=== PATIENT | female | born 1955 | race Caucasian/White ===

== ENCOUNTER → 2023-09-14 06:27 | Day surgery (SDC) | payer MEDICARE, OTHER, SELFPAY | LOC: GI 06:27 | PROVIDERS: ATTENDING PHYSICIAN Internal Medicine | DX: C18.4 Malignant neoplasm of transverse colon (principal); K92.1 Melena; R19.4 Change in bowel habit; K57.30 Diverticulosis of large intestine without perforation or abscess without bleeding; D12.0 Benign neoplasm of cecum; D12.3 Benign neoplasm of transverse colon; D12.2 Benign neoplasm of ascending colon | CPT/HCPCS: 45385; 45380; 45381; 88305 ==

== ENCOUNTER 2023-10-01 09:33 | Outpatient (RCR) | payer MEDICARE, OTHER, SELFPAY ==
[2023-10-01 09:46] VITALS: BP 152/88
[2023-10-01 10:14] VITALS: BP 145/89
[2023-10-01 10:17] VITALS: BP 135/86
[2023-10-01 10:20] VITALS: BP 117/68
== END 2023-10-04 08:25 | disposition home or self-care (01) ==
LOC: OID 09:33
PROVIDERS: ATTENDING PHYSICIAN Internal Medicine Hematology & Oncology; FAMILY PHYSICIAN Family Medicine
DX: D75.1 Secondary polycythemia (principal)
CPT/HCPCS: 99195

== ENCOUNTER 2023-11-19 08:54 | Outpatient (RCR) | payer MEDICARE, OTHER, SELFPAY ==
[2023-11-19 10:06] VITALS: BP 139/72
[2023-11-19 10:36] VITALS: BP 149/78
[2023-11-19 10:43] VITALS: BP 134/71
[2023-11-19 10:47] VITALS: BP 111/58
== END 2023-11-22 09:05 | disposition home or self-care (01) ==
LOC: OID 08:54
PROVIDERS: ATTENDING PHYSICIAN Internal Medicine Hematology & Oncology
DX: D75.1 Secondary polycythemia (principal)
CPT/HCPCS: 99195

== ENCOUNTER 2023-12-03 06:10 | Inpatient (IN) | payer MEDICARE, OTHER, SELFPAY ==
[2023-11-19 08:18] VITALS: BMI 33.1
[2023-11-19 09:08] LABS: Hematocrit 45.4 % (37.0-47.0); Hemoglobin 15.4 g/dL (12.0-16.0); Mean Corp Hgb Conc. 33.9 g/dL (33.0-37.0); Mean Corpuscular Hgb 30.6 pg (27.0-31.0); Mean Corpuscular Volume 90.1 fL (81.0-99.0); Mean Platelet Volume 9.7 fL (7.4-10.4); Platelet Count 305 10^3/uL (130-400); Red Blood Cell Count 5.04 10^6/uL (4.20-5.40); Red Cell Dist. Width 12.9 % (11.5-14.5); White Blood Cell Count 8.8 10^3/uL (4.8-10.8)
[2023-11-19 09:10] LABS: ALT (SGPT) 34 U/L (0-35); AST (SGOT) 62 U/L (14-36); Albumin 4.8 g/dl (3.5-5.0); Alkaline Phosphatase 88 U/L (38-126); Blood Urea Nitrogen 14 mg/dl (7-17); Calcium 10.4 mg/dl (8.4-10.2); Carbon Dioxide 24 mmol/L (22-30); Chloride 101 mmol/L (98-107); Estimated Creatinine Clearance 55 ml/min; Glucose 114 mg/dl (70-99); INR 1.02; PT 13.2 Sec (11.4-14.6); Sodium 138 mmol/L (135-145); Total Protein 8.9 g/dl (6.3-8.2); eGFR > 60.00
[2023-11-19 09:11] LABS: APTT 35.2 Sec (23.4-35.0)
[2023-11-19 09:40] LABS: CEA 1.71 ng/ml
[2023-11-19 09:58] LABS: Glycohemoglobin (HgbA1c) 5.7 % (4.0-5.6)
--- NOTE | 2023-11-22 14:13 | PTCARENOTE ---
EKG OK per Dr Young.
[2023-12-03] VITALS (12 sets, daily range): BP systolic 105–141; BP diastolic 60–75; BMI 33.1
[2023-12-03] MEDS: ENTEREG 12 MG PO (07:16)
[2023-12-03] MEDS: NORMOSOL-R 1000 IV ×3 (07:17→23:24)
[2023-12-03] MEDS: HEPARIN 5000 UNITS SC (07:17)
[2023-12-03] MEDS: TYLENOL 1000 MG PO (07:17)
--- NOTE | 2023-12-03 12:08 | W.IMMPOSTOP ---
Surgical Immed Post Op Note
-
Primary Surgeon: David Rao MD
Securities [employer] Director: DASH Lackey & VALENTINA Casper
Pre-op Diagnosis: Dysplastic transverse colon polyp
Post-op Diagnosis: Same
Procedure Performed: Robotic extended right colectomy with intracorporeal anastomosis
Anesthesia Type: GET
Specimen / Cultures: Right colon and transverse colon (suture roque polypectomy site
Estimated Blood Loss: 25cc
Complications: None
Operative Findings: No evidence of metastatic disease
Carbon black ink in the mid to proximal transverse colon
Isoperistaltic intracorporeal anastomosis
Upon opening the specimen on the back table, the polypectomy site was just proximal to the ink (suture placed to jaylin the site)
Patient's and sisters updated.
[2023-12-03 12:25] LABS: Glucose - Point of Care 140 mg/dl (70-99)
--- NOTE | 2023-12-03 14:10 | PTCARENOTE ---
Patient admitted from [facility] post robotic right colectomy secondary to colon cancer.The patient denies any pain except when she moves.Vital signs are stable.All five incision sites are clean and dry without drainage.The patient is in her bed with the
call salazar in reach.her is at the bedside.
[2023-12-03] MEDS: TYLENOL 650 MG PO ×3 (15:43→23:24)
[2023-12-03] MEDS: TORADOL 10 MG IV ×2 (15:43→20:27)
[2023-12-04] MEDS: TORADOL 10 MG IV ×4 (01:20→19:19)
[2023-12-04] MEDS: TYLENOL 650 MG PO ×4 (03:45→16:20)
[2023-12-04 03:55] VITALS: BP 101/56
[2023-12-04] MEDS: SYNTHROID 150 MCG PO (05:37)
[2023-12-04 06:00] VITALS: BMI 33.4
[2023-12-04 06:26] LABS: % Basophils 0.1 % (0-2); % Immature Granulocytes 0.4 % (0-0.5); % Monocytes 6.6 % (1.7-9.3); % Neutrophils 87.9 % (42.2-75.2); Absolute Lymphocytes 0.6 10^3/uL (1.2-3.4); Absolute Monocytes 0.8 10^3/uL (0.1-0.6); Hemoglobin 10.9 g/dL (12.0-16.0); Mean Corpuscular Hgb 30.4 pg (27.0-31.0); Mean Corpuscular Volume 91.9 fL (81.0-99.0); Mean Platelet Volume 9.4 fL (7.4-10.4); Nucleated Red Blood Cells % 0 %; Platelet Count 248 10^3/uL (130-400); Red Blood Cell Count 3.59 10^6/uL (4.20-5.40); Red Cell Dist. Width 13.4 % (11.5-14.5); White Blood Cell Count 11.3 10^3/uL (4.8-10.8)
[2023-12-04 06:46] LABS: Blood Urea Nitrogen 14 mg/dl (7-17); Calcium 7.1 mg/dl (8.4-10.2); Carbon Dioxide 28 mmol/L (22-30); Chloride 99 mmol/L (98-107); Estimated Creatinine Clearance 61 ml/min; Glucose 127 mg/dl (70-99); Potassium 3.9 mmol/L (3.5-5.1); Sodium 133 mmol/L (135-145); eGFR > 60.00
[2023-12-04 07:15] VITALS: BP 117/72
[2023-12-04] MEDS: PROTONIX 40 MG PO (08:34)
[2023-12-04] MEDS: NORVASC 10 MG PO (08:34)
[2023-12-04] MEDS: ENTEREG 12 MG PO ×2 (08:35→19:19)
--- NOTE | 2023-12-04 10:22 | W.PN.CRS1 ---
Today's Communication / Plan
-
68-year-old female with PMH of hypothyroid, HTN, HLD, hemochromatosis (s/p 1 pint blood draw 1 to 2 weeks ago), DAVID syndrome, idiopathic hypercalcemia, who had an dysplastic transverse colon polyp, presented for elective surgery
POD 1 robotic extended RHC
AFVSS, UOP 1.8 L, Hb 10.9 (from 15.4)
� Advance to clear liquid diet
� Pain control with Tylenol, Toradol, Dilaudid as needed; continue Entereg
� Drop in hemoglobin, likely related to hemodilution and recent blood draw for hemochromatosis; repeat at noon, if stable, will start DVT PPx
� DC Green, monitor for void
� DC O2
� OOB/IS
Subjective Data
Subjective Data
Date of Service: December 04, 2023
No overnight events.
Pain controlled.
Denies nausea/vomiting. Tolerating diet.
+flatus -BMs +green
Pt is not OOB yet.
Objective Data
-
Vital Signs
Temp Pulse Resp BP Pulse Ox
98.2 F 86 17 117/72 96
12/04/23 07:15 12/04/23 07:15 12/04/23 07:15 12/04/23 07:15 12/04/23 07:15
Intake & Output
12/03/23 12/04/23 12/05/23
06:59 06:59 06:59
Intake Total 1720 / 1720
Output Total 1874
Balance -155 / -155
Intake:
Oral fluids 620 / 620
IV fluids (Total) 1100 / 1100
Normosol 200 / 200
Output:
Urine, Green 1874
Lab Results
12/04/23 06:14
Physical Exam
-
General: No Acute Distress and AOx3
HEENT: Grossly Normal
Abdomen: Soft, Non Distended, Tender (Appropriately tender), No Guarding and No Rebound
Skin: Warm and Dry
Wound: No Signs of Infection, Dressing in Place (With Dermabond) and No Skin Erythema
--- NOTE | 2023-12-04 10:58 | CM ---
met with patient and her at bedside.patient lives with in split level home with 7 steps to enter home.she sleeps on recliner in family room/first floor level.there is a bathroom on that level.she amb i and is I with her adl.
raad has poa.her pcp is dr qiu and she uses [facility] in [place].patient with a hx of hemachromatosis is sp robo right colectomy for a transverse colon polyp.she will ambulate,dc ivf,monitor hgb,is,advance to clears.patient for
possible dc home tomorrow .patient has declined a vn.Plan is home with no needs.patient signed imm letter.
[2023-12-04 11:15] VITALS: BP 112/65
[2023-12-04] MEDS: NORMOSOL-R 1000 IV (12:18)
[2023-12-04 12:36] LABS: Hemoglobin 10.6 g/dL (12.0-16.0)
[2023-12-04 15:34] VITALS: BP 118/69
[2023-12-04] MEDS: LOVENOX 40 MG SC (17:17)
[2023-12-04] MEDS: TYLENOL PO ×2 (19:25→23:05)
[2023-12-04 23:12] VITALS: BP 111/68
[2023-12-05] MEDS: TYLENOL 650 MG PO ×2 (00:21→07:48)
[2023-12-05 01:34] VITALS: BMI 34.1
[2023-12-05] MEDS: TORADOL 10 MG IV ×2 (01:37→07:46)
[2023-12-05] MEDS: TYLENOL PO (04:25)
[2023-12-05 04:55] VITALS: BMI 34.1
[2023-12-05 06:00] VITALS: BMI 34.1
[2023-12-05] MEDS: SYNTHROID 150 MCG PO (06:20)
[2023-12-05 07:10] VITALS: BP 128/72
[2023-12-05] MEDS: PROTONIX 40 MG PO (07:46)
[2023-12-05] MEDS: ENTEREG 12 MG PO (07:46)
[2023-12-05] MEDS: NORVASC 10 MG PO (07:48)
[2023-12-05] MEDS: LOW STRENGTH ASPIRIN 81 MG PO (07:51)
--- NOTE | 2023-12-05 09:35 | W.PN.CRS1 ---
Today's Communication / Plan
-
Okay for DC
Assessment/Plan
-
68-year-old female with PMH of hypothyroid, HTN, HLD, hemochromatosis (s/p 1 pint blood draw 1 to 2 weeks ago), DAVID syndrome, idiopathic hypercalcemia, who had an dysplastic transverse colon polyp, presented for elective surgery
POD 2 robotic extended RHC
AFVSS, Hb 10.6 (from 10.9)
� Continue low residue
� Pain control with Tylenol, Toradol, Dilaudid as needed; continue Entereg
� Hb stable, continue DVT PPx with Lvx
� Off O2 and voiding
� OOB/IS
Dispo�okay for discharge; follow-up with Dr. Rao in 2 to 4 weeks
Subjective Data
Subjective Data
Date of Service: December 05, 2023
No overnight events.
Pain controlled.
Denies nausea/vomiting. Tolerating low residue.
+flatus +BMs (nonbloody) +voiding
Pt is OOB.
Objective Data
-
Vital Signs
Temp Pulse Resp BP Pulse Ox
98.2 F 90 17 128/72 94
12/05/23 07:10 12/05/23 07:10 12/05/23 07:10 12/05/23 07:10 12/05/23 08:00
Intake & Output
12/04/23 12/05/23 12/06/23
06:59 06:59 06:59
Intake Total 1720 / 1720 2740 / 2740
Output Total 1874 700 / 700
Balance -155 / -155 2039
Intake:
Oral fluids 620 / 620 1839 / 184
IV fluids (Total) 1100 / 1100 900 / 900
Normosol 200 / 200
Output:
Urine, Syed 1874
Urine, Voided 700 / 700
Other:
Number of approximated MODERATE 3
amounts of urine
Number of approximated LARGE 1
amounts of urine
Lab Results
12/04/23 12:15
12/04/23 06:14
Physical Exam
-
General: No Acute Distress and AOx3
HEENT: Grossly Normal
Abdomen: Soft, Non Distended and Tender (Appropriately tender near incisions, no rebound or guarding)
Skin: Warm and Dry
Wound: No Signs of Infection and Dressing in Place (With Dermabond)
--- NOTE | 2023-12-05 10:56 | CM ---
Initial assessment completed with patient and who live in a split level home with B/B on lower and top floor, 7 steps to each level and 1 step into home. [employer] patient was independent and drove, no DME or in-home services. [facility] [place] and PCP is Dr. Amandeep Keller. Anticipate home with no needs. Patient is in agreement.
--- NOTE | 2023-12-05 11:01 | CM ---
Patient has been medically cleared for discharge to home with no additional skilled services. transported home. l
--- NOTE | 2023-12-05 11:19 | W.DCSUMMARY ---
Discharge Summary
Discharge Data
Date of Admission: 12/03/23
Date of Discharge: 12/05/23
-
Pending Results: No
Hospital Course
68 yo female who presented for scheduled management of dysplastic transverse colon polyp with robotic extended right colectomy with intracorporeal anastomosis. She tolerated the procedure well without acute complications. Diet was able to be
advanced and well tolerated post operatively. She was able to void without difficulty after removal of perioperative Syed. She was discharged to home with outpatient follow up planned in the coming weeks. Pathology from OR pending.
Discharge Plan
-
Patient Disposition: Home (Routine Discharge)
Discharge Diagnosis/Procedures: Robotic extended right colectomy with intracorporeal anastomosis
Condition: Good
Diet: Low Residue
Activity: No strenuous activity
Additional Activity: No lifting over 10lbs (gallon of milk)
Driving Restrictions: No driving for 1 week
Bathing Restrictions: OK to Shower
Wound Care: Allow glue to naturally fall off. Do not pick at incisions.
Instructions: Low Fiber Diet
Referrals:
Walt Rao MD [Active] - in two weeks
Amandeep Keller DO [Family Provider] -
Prescriptions:
New
acetaminophen 325 mg tablet
650 mg PO Q4HPRN PRN (Reason: mild pain) Qty: 1 0RF
ibuprofen 200 mg tablet
400 - 600 mg PO Q6HPRN PRN (Reason: moderate pain) Qty: 1 0RF
tramadol 50 mg tablet
25 - 50 mg PO Q6HPRN PRN (Reason: severe pain/breakthrough pain) Qty: 5 0RF
Continued
levothyroxine 100 MCG tablet
150 mcg PO DAILY
amlodipine [Norvasc] 5 MG tablet
10 mg PO DAILY
cholecalciferol (vitamin D3) [Vitamin D3] 1,000 UNIT capsule
1,000 unit PO DAILY
aspirin 81 MG tablet,chewable
81 mg PO SUTUTH
Discontinued
metronidazole 500 mg Tablet
500 mg PO DIRECTED
Patient Comments:
Took at 1400, 1500 and 2200
neomycin 500 mg Tablet
500 mg PO DIRECTED
Patient Comments:
Took at 1400, 1500 and 2200
Sutab 1.479-0.188- 0.225 gram Tablet
1 tab PO DIRECTED
Patient Comments:
Took at 1500 & 2000
Discharge Orders:
Discharge Patient (As Directed); Ordered 12/05/23
Ordered By: Leigh Ibarra
Discharge Date and Time
Discharge Date/Time: 12/05/23 10:45
Print Language: LATVIAN
== END 2023-12-05 10:45 | disposition home or self-care (01) | DRG 330 ==
LOC: 2 SOUTH 06:10
PROVIDERS: Physician Assistant; Registered Nurse; ADMITTING PHYSICIAN Surgery; FAMILY PHYSICIAN Family Medicine
PROC: 0DTF4ZZ Resection of Right Large Intestine, Percutaneous Endoscopic Approach (ICD-10-PCS; 2023-12-03)
PROC: 0DBL4ZZ Excision of Transverse Colon, Percutaneous Endoscopic Approach (ICD-10-PCS; 2023-12-03)
PROC: 8E0W4CZ Robotic Assisted Procedure of Trunk Region, Percutaneous Endoscopic Approach (ICD-10-PCS; 2023-12-03)
PROC: 4A1BXSH Monitoring of Gastrointestinal Vascular Perfusion using Indocyanine Green Dye, External Approach (ICD-10-PCS; 2023-12-03)
DX: K63.5 Polyp of colon (principal); N17.9 Acute kidney failure, unspecified; K66.0 Peritoneal adhesions (postprocedural) (postinfection); K76.0 Fatty (change of) liver, not elsewhere classified; E03.9 Hypothyroidism, unspecified; I10 Essential (primary) hypertension; E78.5 Hyperlipidemia, unspecified; E83.119 Hemochromatosis, unspecified; E83.52 Hypercalcemia; Z79.890 Hormone replacement therapy
CPT/HCPCS: 88307; 36415; 80048; 80053; 82378; 82962; 83036; 85014; 85018; 85025; 85027; 85610; 85730; 86850; 86900; 86901; 88341; 88342; 93005; J1335

== ENCOUNTER 2024-01-30 10:40 | Emergency (ER) | payer MEDICARE, OTHER, SELFPAY ==
[2024-01-30 10:47] VITALS: BP 135/76
[2024-01-30 10:57] VITALS: BMI 31.1
[2024-01-30] MEDS: LET TOPICAL ANESTHETIC GEL 3 ML TOPICAL (11:29)
--- NOTE | 2024-01-30 12:40 | ED.GENMED ---
History of Present Illness
General
Chief Complaint: Fall
Time Seen by Provider: 01/30/24 10:51
History of Present Illness
History of Present Illness:
68-year-old female presents the emergency department for evaluation of a head injury after mechanical fall. She tripped, struck her head on the ground. She does take occasional baby aspirin and did take it this morning. No loss of consciousness
or vomiting reported. Multiple lacerations to the right forehead are noted. Denies neck pain or extremity paresthesias
Review of Systems
Review of Systems
Allergies reviewed?: Yes
All Other Systems: ROS reviewed and negative except as documented in HPI and ROS
Phy Exam
Physical Exam
Physical Exam:
GEN: Well appearing, NAD, WDWN
HEENT: Oral mucosa moist, no scleral icterus. 3 distinct lacerations to the right forehead, there is a 0.5 cm partial-thickness laceration within the hairline, a separate 1 cm vertically oriented laceration to the right mid forehead, a 2.5 cm
laceration just above the right eyebrow
Cardiac: Regular rate
Lung: No respiratory distress, no tachypnea
MSK: No gross deformity or injuries, no midline neck tenderness
Skin: Good color, no pallor or jaundice, no rashes
Neuro: AO x3, moves all extremities freely
Psych: Calm, cooperative
Course
Orders/Labs/Results
Orders:
Orders
01/30/24 11:20
CT Head W/o Iv Contrast Urgent
Comment:
Reason For Exam: fall head injury
Lidocaine/Epinephrine/Tetracai [Let Topical Anesthetic Gel] 3 ml TOPICAL NOW STA
CR Elbow - Right Min 3 Views Urgent
Comment:
Reason For Exam: fall
Vital Signs
Initial and Last Documented VS:
Initial Vital Signs
Temp Pulse Resp BP Pulse Ox
98.7 F 79 16 135/76 98
01/30/24 10:47 01/30/24 10:47 01/30/24 10:47 01/30/24 10:47 01/30/24 10:47
Last Documented Vital Signs
Temp Pulse Resp BP Pulse Ox
98.7 F 79 16 135/76 98
01/30/24 10:47 01/30/24 10:47 01/30/24 10:47 01/30/24 10:47 01/30/24 10:47
Procedures
Laceration Closure
Right forehead:
Status of Wound: clean
Size of Wound in cm: 2.5
Description of Wound Edges: sharp
Preparation: cleaned with saline
Anesthesia: 1% Lidocaine with epi and Topical-LET
Wound exploration: explored to base- no FB
Type of Closure: single layer closure
Skin Closure Material: 6-0 prolene
Number of sutures: 3
MDM/Problems Addressed
MDM/Problems Addressed:
CT of the head was obtained due to the patient's age and aspirin use and this was unremarkable. She also reported right elbow pain, x-rays of the right elbow independently interpreted by me show no acute osseous abnormality however there is a joint
effusion concerning for an occult fracture. The patient is placed in a sling for this. Wounds repaired with external sutures as detailed.
*Critical Care Note
Total Time (30-74mins, 75-104mins- exclusive of procedures): Not Applicable
ED Attending Note
-
Portions of this chart may have been created with voice recognition software.� Occasional wrong word or��sound alike� substitutions may have occurred due to the inherent limitations of voice recognition software.
Discharge Plan
Departure
Patient Disposition: Home (Routine Discharge)
Date of Disposition: 01/30/24
Time of Disposition: 12:40
Patient with high blood pressure during this ER visit?: No
Discharge Problem:
Sprain of elbow, right, Forehead laceration
Instructions: Laceration Repair With Stitches (DC)
Prescriptions:
No Action
levothyroxine 100 MCG tablet
150 mcg PO DAILY
amlodipine [Norvasc] 5 MG tablet
10 mg PO DAILY
cholecalciferol (vitamin D3) [Vitamin D3] 1,000 UNIT capsule
1,000 unit PO DAILY
aspirin 81 MG tablet,chewable
81 mg PO SUTUTH
acetaminophen 325 mg tablet
650 mg PO Q4HPRN PRN (Reason: mild pain) Qty: 1 0RF
ibuprofen 200 mg tablet
400 - 600 mg PO Q6HPRN PRN (Reason: moderate pain) Qty: 1 0RF
tramadol 50 mg tablet
25 - 50 mg PO Q6HPRN PRN (Reason: severe pain/breakthrough pain) Qty: 5 0RF
Referrals:
Gino Granados MD [Active] -
Amandeep Keller DO [Family Provider] -
Activity Restrictions/Additional Instructions:
Your elbow x-rays are suspicious for a fracture that cannot be seen and there is fluid in the joint. Please use the sling until orthopedic follow-up, remove the sling at least 1 hour/day to allow the elbow to stretch
Interventions
Interventions:
*Risk Screen - Suicide Last Done: 01/30/24 10:58
*General Assessment Last Done: 01/30/24 10:58
*Neglect/Abuse Screening Last Done: 01/30/24 10:58
ED- Fall Risk Assessment Last Done: 01/30/24 10:57
*ED COVID-19 Vaccine History Last Done: 01/30/24 10:47
*Nursing Disposition Last Done: 01/30/24 12:59
ED-Musculoskeletal Assessment Last Done: 01/30/24 11:00
ED- Neurological Assessment Last Done: 01/30/24 11:00
ED-Skin Assessment Last Done: 01/30/24 11:00
Discharge Date and Time
Discharge Date/Time: 01/30/24 13:01
Print Language: BRAZILIAN
== END 2024-01-30 13:01 | disposition home or self-care (01) ==
LOC: EMR 10:40
PROVIDERS: EMERGENCY PHYSICIAN Emergency Medicine; FAMILY PHYSICIAN Family Medicine
DX: S53.401A Unspecified sprain of right elbow, initial encounter (principal); S01.81XA Laceration without foreign body of other part of head, initial encounter; W18.30XA Fall on same level, unspecified, initial encounter
CPT/HCPCS: 99284; 12011; 70450; 73080

== ENCOUNTER 2024-08-30 09:42 | Outpatient (RCR) | payer MEDICARE, OTHER, SELFPAY ==
[2024-08-30 10:24] VITALS: BP 147/73
[2024-08-30 11:02] VITALS: BP 130/76
[2024-08-30 11:05] VITALS: BP 134/74
[2024-08-30 11:07] VITALS: BP 111/58
[2024-08-30 11:07] LABS: ALT (SGPT) 43 U/L (0-35); AST (SGOT) 68 U/L (14-36); Albumin 4.6 g/dl (3.5-5.0); Alkaline Phosphatase 74 U/L (38-126); Direct Bilirubin 0.4 mg/dl (0.0-0.4); Total Bilirubin 0.9 mg/dl (0.2-1.3); Total Protein 8.4 g/dl (6.3-8.2)
[2024-08-30 11:10] VITALS: BP 127/67
[2024-08-30 11:15] VITALS: BP 133/71
[2024-08-30 11:34] LABS: CEA 1.86 ng/ml
== END 2024-08-31 08:18 | disposition home or self-care (01) ==
LOC: OID 09:42
PROVIDERS: ATTENDING PHYSICIAN Internal Medicine Hematology & Oncology; FAMILY PHYSICIAN Family Medicine
DX: D75.1 Secondary polycythemia (principal)
CPT/HCPCS: 36415; 80076; 82105; 82378; 99195

== ENCOUNTER 2024-11-20 09:55 | Outpatient (RCR) | payer MEDICARE, OTHER, SELFPAY ==
[2024-11-20 10:54] VITALS: BP 138/86
[2024-11-20 11:15] VITALS: BP 126/75
[2024-11-20 11:28] VITALS: BP 137/77
[2024-11-20 11:35] VITALS: BP 129/73
== END 2024-11-21 09:27 | disposition home or self-care (01) ==
LOC: OID 09:55
PROVIDERS: ATTENDING PHYSICIAN Internal Medicine Hematology & Oncology; FAMILY PHYSICIAN Family Medicine
DX: E83.110 Hereditary hemochromatosis (principal)
CPT/HCPCS: 99195

== ENCOUNTER 2025-01-09 09:44 | Outpatient (RCR) | payer MEDICARE, OTHER, SELFPAY ==
[2025-01-09 10:23] VITALS: BP 150/83
[2025-01-09 11:18] VITALS: BP 134/85
[2025-01-09 11:25] VITALS: BP 112/60
== END 2025-02-05 23:59 | disposition home or self-care (01) ==
LOC: OID 09:44
PROVIDERS: ATTENDING PHYSICIAN Internal Medicine Hematology & Oncology; FAMILY PHYSICIAN Family Medicine
DX: E83.110 Hereditary hemochromatosis (principal); D75.1 Secondary polycythemia; Z85.038 Personal history of other malignant neoplasm of large intestine
CPT/HCPCS: 99195

== ENCOUNTER 2025-03-26 06:28 | Day surgery (SDC) | payer MEDICARE, OTHER, SELFPAY | END 2025-03-26 13:21 | disposition home or self-care (01) | LOC: GI 06:28 | PROVIDERS: ATTENDING PHYSICIAN Internal Medicine | DX: K57.30 Diverticulosis of large intestine without perforation or abscess without bleeding (principal); Z85.038 Personal history of other malignant neoplasm of large intestine; Z53.8 Procedure and treatment not carried out for other reasons | CPT/HCPCS: 45378 ==

== ENCOUNTER 2025-04-16 06:22 | Day surgery (SDC) | payer MEDICARE, OTHER, SELFPAY | END 2025-04-16 10:09 | disposition home or self-care (01) | LOC: GI 06:22 | PROVIDERS: ATTENDING PHYSICIAN Internal Medicine | DX: K63.5 Polyp of colon (principal); K57.30 Diverticulosis of large intestine without perforation or abscess without bleeding; Z85.038 Personal history of other malignant neoplasm of large intestine; Z98.0 Intestinal bypass and anastomosis status | CPT/HCPCS: 45385; 45380; 88305 ==

== ENCOUNTER 2025-05-10 08:50 | Outpatient (RCR) | payer MEDICARE, OTHER, SELFPAY ==
[2025-05-10 09:29] VITALS: BP 143/80
[2025-05-10 10:02] VITALS: BP 137/74
[2025-05-10 10:05] VITALS: BP 110/70
== END 2025-06-08 23:59 | disposition home or self-care (01) ==
LOC: OID 08:50
PROVIDERS: ATTENDING PHYSICIAN Internal Medicine Hematology & Oncology; FAMILY PHYSICIAN Family Medicine
DX: E83.110 Hereditary hemochromatosis (principal); D75.1 Secondary polycythemia; Z85.038 Personal history of other malignant neoplasm of large intestine
CPT/HCPCS: 99195